=== PATIENT | male | born 1990 | race Caucasian/White ===

== ENCOUNTER 2023-06-22 07:36 | Emergency (ER) | payer BC, OTHER ==
[~2023-06-22] VITALS: Ht 167.6 cm; Wt 63.5 kg
[2023-06-22] MEDS ORDERED: FLUORESCEIN SODIUM 1 MG STRIP ONE (08:08)
[2023-06-22] MEDS ORDERED: TETRACAINE HCL 0.5% OPHT DROP 2 ML BOTTLE ONE (08:09)
[2023-06-22] MEDS: TETRACAINE HCL 0.5% OPHT DROP 2 ML BOTTLE OP ONE (08:10)
[2023-06-22] MEDS: FLUORESCEIN SODIUM 1 MG STRIP OP ONE (08:10)
[2023-06-22 08:33] VITALS: BP 137/74; TEMP 98.2; O2SAT 98
== END 2023-06-22 08:34 | disposition home or self-care (01) ==
LOC: ER 07:36
DX: H10.12 Acute atopic conjunctivitis, left eye (principal)
CPT/HCPCS: A4606; A4663